=== PATIENT | female | born 1960 | race Hispanic/Latino ===

== ENCOUNTER → 2017-09-23 | Outpatient (CLI) | payer OTHER ==
[~2017-09-23] MED LIST: LIDOCAINE/PRILOCAINE CREAM 5GM TUBE TP ONE; SANTYL AUTOSUB TO MEDIHONEY FOR INPT TP ONE
[2017-09-23 17:04] VITALS: BP 179/80
== END | disposition home or self-care (01) ==
LOC: WHH 09:20
PROVIDERS: ATTEND Podiatrist Foot & Ankle Surgery
DX: L97.311 Non-pressure chronic ulcer of right ankle limited to breakdown of skin (principal)
CPT/HCPCS: 87070; 97597; A4450; G0463; J3490

== ENCOUNTER → 2017-09-30 | Outpatient (CLI) | payer OTHER ==
[2017-09-30 15:02] VITALS: BP 165/75
== END | disposition home or self-care (01) ==
LOC: WHH 08:00
PROVIDERS: ATTEND Podiatrist Foot & Ankle Surgery
DX: L97.311 Non-pressure chronic ulcer of right ankle limited to breakdown of skin (principal)
CPT/HCPCS: 11042; A6022

== ENCOUNTER → 2017-10-07 | Outpatient (CLI) | payer OTHER ==
[~2017-10-07] MED LIST changes: +LIDOCAINE HCL 4% LTA SOL 4 ML VIAL TP ONE; -LIDOCAINE/PRILOCAINE CREAM 5GM TUBE TP ONE; -SANTYL AUTOSUB TO MEDIHONEY FOR INPT TP ONE
[2017-10-07 14:30] VITALS: BP 164/72
== END | disposition home or self-care (01) ==
LOC: WHH 08:00
PROVIDERS: ATTEND Podiatrist Foot & Ankle Surgery
DX: L97.311 Non-pressure chronic ulcer of right ankle limited to breakdown of skin (principal)
CPT/HCPCS: A4649; G0463

== ENCOUNTER → 2017-10-14 | Outpatient (CLI) | payer OTHER ==
[~2017-10-14] MED LIST changes: -LIDOCAINE HCL 4% LTA SOL 4 ML VIAL TP ONE; +LIDOCAINE/PRILOCAINE CREAM 5GM TUBE TP ONE
[2017-10-14 14:31] VITALS: BP 182/82
== END | disposition home or self-care (01) ==
LOC: WHH 08:00
PROVIDERS: ATTEND Podiatrist Foot & Ankle Surgery
DX: L97.311 Non-pressure chronic ulcer of right ankle limited to breakdown of skin (principal)
CPT/HCPCS: A4649; G0463; J3490

== ENCOUNTER 2017-10-21 08:00 | Outpatient (CLI) | payer OTHER ==
[2017-10-21 13:02] VITALS: BP 170/79
== END 2017-10-21 14:53 | disposition home or self-care (01) ==
LOC: WHH 08:00
PROVIDERS: ATTEND Podiatrist Foot & Ankle Surgery
DX: E11.622 Type 2 diabetes mellitus with other skin ulcer (principal); L97.311 Non-pressure chronic ulcer of right ankle limited to breakdown of skin
CPT/HCPCS: G0463

== ENCOUNTER → 2017-12-11 | Outpatient (CLI) | payer OTHER | END | disposition home or self-care (01) | LOC: RAH 09:12 | PROVIDERS: ATTEND Family Medicine | DX: R10.9 Unspecified abdominal pain (principal); R74.8 Abnormal levels of other serum enzymes | CPT/HCPCS: 76700 ==

== ENCOUNTER 2018-06-21 22:45 | Emergency (ER) | payer OTHER ==
[2018-06-21 23:10] LABS: APPEARANCE,URINE Clear (CLEAR); BILIRUBIN,URINE Negative (NEGATIVE); COLOR,URINE Yellow (YELLOW); GLUCOSE, URINE (UA) Negative (NEGATIVE); KETONES,URINE Negative (NEGATIVE); LEUKOCYTE ESTERASE ,URINE Trace (NEGATIVE); NITRATE,URINE Negative (NEGATIVE); OCCULT BLOOD,URINE Negative (NEGATIVE); PROTEIN,URINE POS 2+ (NEGATIVE); UROBILINOGEN,URINE 0.2 mg/dL (0.2-1.0)
[2018-06-21] MEDS ORDERED: KETOROLAC TROMETHAMINE 30MG/ML ONE (23:13)
[2018-06-21] MEDS ORDERED: ONDANSETRON HCL 4 MG/2 ML VIAL ONE (23:13)
[2018-06-21 23:20] LABS: BACTERIA,URINE Rare /HPF (None Seen); MUCUS,URINE Moderate LPF (None Seen); RBC,URINE 0-1 /HPF (0-1); SQUAMOUS EPITHELIAL CELL,UR Moderate /HPF (0-2)
[2018-06-21 23:33] LABS: BASOPHILS % (AUTO) 0.4 % (0.0-5.0); EOSINOPHILS % (AUTO) 2.5 % (0.0-8.0); HEMATOCRIT 39.3 % (36-48); LYMPHOCYTES % (AUTO) 32.4 % (21.0-51.0); MEAN CORPUSCULAR HGB CONC 33.7 g/dL (32.0-36.0); MEAN CORPUSCULAR VOLUME 85.9 fL (79-99); MONOCYTES % (AUTO) 8.1 % (3.0-13.0); NEUTROPHILS % (AUTO) 56.6 % (40.0-77.0); PLATELET COUNT (AUTO) 272 K/uL (130-400); RED BLOOD CELL COUNT(AUTO) 4.58 MIL/uL (4.00-5.50); RED CELL DISTRIBUTION WIDTH 14.4 % (11.0-15.5); WHITE BLOOD COUNT (AUTO) 10.8 K/uL (4.8-10.8)
[2018-06-21 23:40] LABS: CREATININE 0.9 mg/dL (0.5-1.5)
[2018-06-21 23:44] LABS: ALBUMIN 3.4 g/dL (3.5-5.0); BILIRUBIN,TOTAL 0.3 mg/dL (0.2-1.0); TOTAL PROTEIN, SERUM 6.9 g/dL (6.0-8.3)
== END 2018-06-22 01:15 | disposition home or self-care (01) ==
LOC: EDH 22:45
DX: K59.00 Constipation, unspecified (principal); I10 Essential (primary) hypertension; E11.9 Type 2 diabetes mellitus without complications; E78.5 Hyperlipidemia, unspecified; Z98.890 Other specified postprocedural states
CPT/HCPCS: 36415; 74176; 80053; 81001; 85025; 96374; 96375; 99285; J1885; J2405

== ENCOUNTER 2019-01-13 23:27 | Observation (INO) | payer OTHER ==
[2019-01-13] MEDS ORDERED: ASPIRIN 325 MG TABLET ONE (23:38)
[2019-01-13 23:45] LABS: BASOPHILS % (AUTO) 2.1 % (0.0-5.0); EOSINOPHILS % (AUTO) 2.3 % (0.0-8.0); HEMATOCRIT 39.1 % (36-48); LYMPHOCYTES % (AUTO) 32.5 % (21.0-51.0); MEAN CORPUSCULAR HEMOGLOBIN 28.3 pg (27.0-33.0); MEAN CORPUSCULAR VOLUME 85.8 fL (79-99); MONOCYTES % (AUTO) 6.6 % (3.0-13.0); NEUTROPHILS % (AUTO) 56.5 % (40.0-77.0); NUCLEATED RED BLOOD CELLS 0.1 % (0.0-0.19); PLATELET COUNT (AUTO) 240 K/uL (130-400); RED BLOOD CELL COUNT(AUTO) 4.56 MIL/uL (4.00-5.50); RED CELL DISTRIBUTION WIDTH 14.3 % (11.0-15.5); WHITE BLOOD COUNT (AUTO) 9.7 K/uL (4.8-10.8)
[2019-01-13 23:55] LABS: INR 0.9 (0.85-1.15); PARTIAL THROMBOPLASTIN TIME 26.4 SEC (26.3-35.5); POTASSIUM 3.8 mmol/L (3.5-5.1); PROTHROMBIN TIME 9.5 SEC (9.6-11.6)
[2019-01-13 23:59] LABS: ALBUMIN 3.5 g/dL (3.5-5.0); BILIRUBIN,TOTAL 0.3 mg/dL (0.2-1.0); TOTAL PROTEIN, SERUM 6.9 g/dL (6.0-8.3)
[2019-01-14] VITALS (10 sets, daily range): BP systolic 134–156; BP diastolic 50–82
[2019-01-14 00:19] LABS: B-TYPE NATRIURETIC PEPTIDE 17 pg/mL (0-100)
[2019-01-14] MEDS ORDERED: NITROGLYCERIN 1GM/1 INCH PACKET TD ONE (01:21)
[2019-01-14] MEDS ORDERED: GLUCAGON 1MG KIT 1 MG ML IM PRN (01:45)
[2019-01-14] MEDS ORDERED: DEXTROSE 50%-WATER 50 ML DISP.SYRIN IV PRN (01:45)
[2019-01-14 03:52] LABS: APPEARANCE,URINE CLEAR (CLEAR); BILIRUBIN,URINE NEGATIVE (NEGATIVE); COLOR,URINE YELLOW (YELLOW); GLUCOSE, URINE (UA) 100 mg/dL (NEGATIVE); KETONES,URINE NEGATIVE (NEGATIVE); LEUKOCYTE ESTERASE ,URINE NEGATIVE (NEGATIVE); NITRATE,URINE NEGATIVE (NEGATIVE); OCCULT BLOOD,URINE NEGATIVE (NEGATIVE); PH,URINE 5.5 (5.0-8.0); PROTEIN,URINE 100 mg/dL (NEGATIVE); UROBILINOGEN,URINE 0.2 mg/dL (0.2-1.0)
[2019-01-14 03:59] LABS: BACTERIA,URINE Rare /HPF (None Seen); RBC,URINE None Seen /HPF (0-1); SQUAMOUS EPITHELIAL CELL,UR Few /HPF (0-2); WBC,URINE 0-1 /HPF (0-1)
[2019-01-14] MEDS ORDERED: NITROGLYCERIN 1GM/1 INCH PACKET TD SCH (06:00)
[2019-01-14] MEDS ORDERED: ASPIRIN 325MG EC TAB 325 MG TABLET.DR PO SCH (09:00)
--- NOTE | 2019-01-14 10:58 | NUR ---
[facility] Ashleigh met with pt and daughter Christi Diaz [phone]. Daughter lives with pt who is self employed, independent, drives, no DME or in home care services. Dr Atif Samuels is PCP, has rx coverage. Plan is home with daughter at pr Addendum: 01/14/19 at 1059 by MACARIO PHAM SS Amended: Links added.
[2019-01-14] MEDS ORDERED: LISINOPRIL 40 MG TABLET PO SCH (11:00)
[2019-01-14] MEDS ORDERED: ASPIRIN 325 MG TABLET ONE (11:14)
[2019-01-14] MEDS ORDERED: IOHEXOL-350 50ML VIAL IV ONE (14:03)
[2019-01-14] MEDS ORDERED: IOHEXOL 350 MG/ML 100ML INFUS..BTL IV ONE (14:03)
[2019-01-14] MEDS ORDERED: BIVALIRUDIN 250 MG/VIAL IV ONE (14:03)
[2019-01-14] MEDS ORDERED: NITROGLYCERIN 5 MG/ML 10 ML VIAL IV ONE (14:03)
[2019-01-14] MEDS ORDERED: LIDOCAINE HCL 1% 20 ML VIAL ONE (14:03)
[2019-01-14] MEDS ORDERED: MIDAZOLAM HCL 1 MG/ML 2ML VIAL ONE (14:03)
[2019-01-14] MEDS ORDERED: FENTANYL CITRATE PF 50 MCG/1 ML 2ML VIAL ONE (14:06)
[2019-01-14] MEDS ORDERED: TICAGRELOR 90 MG TABLET ONE (14:26)
[2019-01-14] MEDS ORDERED: MORPHINE SULFATE 4 MG/1ML SYG ONE (14:40)
[2019-01-14] MEDS ORDERED: LOVA20TA3 PO (14:54)
[2019-01-14] MEDS ORDERED: LISI40TA4 PO (14:54)
[2019-01-14] MEDS ORDERED: ASPI-555 PO (14:54)
[2019-01-14] MEDS ORDERED: METO25 PO (14:54)
[2019-01-14] MEDS ORDERED: INSU100I26 SQ (14:54)
[2019-01-14] MEDS ORDERED: SODIUM CHLORIDE 0.9% 1000ML 1,000 ML IV SCH (14:55)
[2019-01-14] MEDS ORDERED: HYDRALAZINE HCL 20 MG/ML VIAL IV PRN (15:00)
[2019-01-14] MEDS ORDERED: METOPROLOL TARTRATE 1 MG/ML 5ML VIAL IV PRN (15:00)
[2019-01-14] MEDS ORDERED: NITROGLYCERIN 0.4 MG SL TAB SL PRN (15:00)
[2019-01-14] MEDS ORDERED: LINA5TAB PO (15:33)
[2019-01-14] MEDS: INSULIN R PO SS1 SQ SCH ×2 (16:17→21:00)
[2019-01-14] MEDS: METOPROLOL TARTRATE 25 MG TAB PO SCH ×2 (16:39→20:26)
[2019-01-14] MEDS: NITROGLYCERIN 1GM/1 INCH PACKET TD SCH (17:06)
--- NOTE | 2019-01-14 20:00 | NUR ---
DRESSING TO RIGHT GROIN CLEAN, DRY, AND INTACT. SITE APPEARS SOFT TO PALPATION.
[2019-01-14] MEDS: TICAGRELOR 90 MG TABLET PO SCH (20:27)
[2019-01-14] MEDS ORDERED: ATORVASTATIN CALCIUM 20 MG TABLET PO SCH (21:00)
[2019-01-14] MEDS ORDERED: NON-FORMULARY MEDICATION 1 EACH (Lovastatin 20 MG) PO SCH (21:00)
[2019-01-14] MEDS ORDERED: METOPROLOL TARTRATE 25 MG PO SCH (21:00)
[2019-01-14] MEDS ORDERED: MORPHINE SULFATE 2 MG/ML 1ML SYG IVP PRN (22:45)
[2019-01-14] MEDS ORDERED: HYDROCODONE/ACETAMINOPHEN 10/325 MG TAB PO PRN (22:45)
[2019-01-14] MEDS ORDERED: ONDANSETRON HCL 4 MG/2 ML VIAL IVP PRN (22:45)
[2019-01-14] MEDS ORDERED: HYDROCODONE/ACETAMINOPHEN 10/325 MG TAB ONE (22:47)
--- NOTE | 2019-01-15 00:05 | NUR ---
DRESSING REMAINS CLEAN, DRY, AND INTACT. PATIENT AMBULATING WITHOUT DIFFICULTY. SITE CONTINUES TO APPEAR SOFT TO PALPATION.
[2019-01-15] MEDS: NITROGLYCERIN 1GM/1 INCH PACKET TD SCH ×2 (00:20→05:33)
[2019-01-15 03:56] VITALS: BP 127/74
--- NOTE | 2019-01-15 05:30 | NUR ---
RIGHT GROIN DRESSING INTACT, NO DRAINAGE NOTED. SITE APPEARS SOFT TO PALPATION. PATIENT DENIES ANY COMPLAINTS OF PAIN OR DISCOMFORT AT PRESENT.
[2019-01-15] MEDS: INSULIN R PO SS1 SQ SCH ×2 (05:33→11:51)
[2019-01-15 07:24] VITALS: BP 142/56
--- NOTE | 2019-01-15 07:30 | NUR ---
ASSESSMENT ENCOUNTERED PT A&OX3, CALM COOPERATIVE AND DOES NOT APPEAR TO BE IN ANY DISTRESS NOR ANY NEURO DEFICITS PRESENT. PT DENIES PAIN, SOB, NAUSEA. RT GROIN SOFT NONTENDER WITH NO OOZING OR HEMATOMA PRESENT. DP/PT PULSES PALPABLE. PT IS AMBULATORY, GAIT STEADY AND STRONG WITH STAND BY ASSIST. CALL LIGHT WITHIN REACH, FAMILY AT BEDSIDE.
[2019-01-15] MEDS: TICAGRELOR 90 MG TABLET PO SCH (08:33)
[2019-01-15] MEDS: METOPROLOL TARTRATE 25 MG TAB PO SCH (08:34)
[2019-01-15] MEDS ORDERED: NON-FORMULARY MEDICATION 1 EACH (Aspirin (Aspir 81) 81 MG) PO SCH (09:00)
[2019-01-15] MEDS ORDERED: INSULIN GLARGINE 100 UNITS/ML 10 ML VIAL SQ SCH (09:00)
[2019-01-15] MEDS ORDERED: ASPIRIN 81 MG EC TAB PO SCH (09:00)
[2019-01-15] MEDS ORDERED: LISINOPRIL 40 MG TABLET PO SCH (09:00)
[2019-01-15 11:14] VITALS: BP 140/69
[2019-01-15] MEDS ORDERED: TICA90TA PO (12:28)
--- NOTE | 2019-01-15 13:00 | NUR ---
DISCHARGE INSTRUCTIONS GIVEN, PIV REMOVED AND INTACT, BRILIN[employer] VOUCHER CARD GIVEN, DISCHARGED HOME TO FAMILY VEHICLE VIA WHEELCHAIR.
== END 2019-01-15 13:45 | disposition home or self-care (01) ==
LOC: EDH 23:27 → EDHIP 01-14 00:48 → INTOOBSV 01-14 00:48 → 2AH 01-14 15:28
PROVIDERS: ADMIT Internal Medicine; ATTEND Internal Medicine
DX: I20.0 Unstable angina (principal); E11.9 Type 2 diabetes mellitus without complications; E66.01 Morbid (severe) obesity due to excess calories; G47.33 Obstructive sleep apnea (adult) (pediatric); E78.5 Hyperlipidemia, unspecified; I10 Essential (primary) hypertension; I47.1 Supraventricular tachycardia; I49.1 Atrial premature depolarization; J45.909 Unspecified asthma, uncomplicated; Z79.02 Long term (current) use of antithrombotics/antiplatelets; Z79.82 Long term (current) use of aspirin; Z79.84 Long term (current) use of oral hypoglycemic drugs; Z82.49 Family history of ischemic heart disease and other diseases of the circulatory system; Z79.01 Long term (current) use of anticoagulants
CPT/HCPCS: 36415 ×2; 71045; 80053; 81001; 82550 ×2; 82948 ×5; 83605; 83690; 83880; 84484 ×2; 85025; 85610; 85730; 93005 ×3; 93306; 93458; 96372; C1725; C1769; C1874; C1887; C1894 ×2; C9600; G0378 ×34; J0583; J1644; J1815; J2250; J2270; J3010; J3490; J7030; Q9965 ×2; Q9967 ×2; 99156; 99157

== ENCOUNTER → 2020-01-19 | Outpatient (CLI) | payer OTHER ==
[~2020-01-19] MED LIST changes: +ASPI-556 PO; +INSU100I26 SQ; +LIDOCAINE HCL 2% JELLY 5 ML TP ONE; -LIDOCAINE/PRILOCAINE CREAM 5GM TUBE TP ONE; +LINA5TAB PO; +LISI40TA4 PO; +LOVA20TA3 PO; +METO25 PO; +TICA90TA PO
[2020-01-19 14:27] VITALS: BP 128/73
== END | disposition home or self-care (01) ==
LOC: WHH 08:30
PROVIDERS: ATTEND Surgery
DX: E11.622 Type 2 diabetes mellitus with other skin ulcer (principal); L97.211 Non-pressure chronic ulcer of right calf limited to breakdown of skin; I10 Essential (primary) hypertension; I25.10 Atherosclerotic heart disease of native coronary artery without angina pectoris; E78.5 Hyperlipidemia, unspecified; E66.9 Obesity, unspecified; Z79.4 Long term (current) use of insulin; Z95.5 Presence of coronary angioplasty implant and graft
CPT/HCPCS: A4450; A6021; G0463; 99205

== ENCOUNTER → 2020-01-26 | Outpatient (CLI) | payer OTHER ==
[~2020-01-26] MED LIST changes: -LIDOCAINE HCL 2% JELLY 5 ML TP ONE
[2020-01-26 12:38] VITALS: BP 171/74
== END | disposition home or self-care (01) ==
LOC: WHH 08:00
PROVIDERS: ATTEND Surgery
DX: E11.622 Type 2 diabetes mellitus with other skin ulcer (principal); L97.228 Non-pressure chronic ulcer of left calf with other specified severity; I10 Essential (primary) hypertension; I25.10 Atherosclerotic heart disease of native coronary artery without angina pectoris; E78.5 Hyperlipidemia, unspecified; E66.9 Obesity, unspecified; Z79.4 Long term (current) use of insulin; Z95.5 Presence of coronary angioplasty implant and graft
CPT/HCPCS: G0463

== ENCOUNTER 2020-02-02 08:00 | Outpatient (CLI) | payer OTHER ==
[2020-02-02 12:18] VITALS: BP 157/88; PULSE 78; RESP 18; TEMP 98.9
== END 2020-02-02 14:04 | disposition home or self-care (01) ==
LOC: WHH 08:00
PROVIDERS: ATTEND Surgery
DX: E11.622 Type 2 diabetes mellitus with other skin ulcer (principal); L97.228 Non-pressure chronic ulcer of left calf with other specified severity; I25.10 Atherosclerotic heart disease of native coronary artery without angina pectoris; I10 Essential (primary) hypertension; E66.9 Obesity, unspecified; E78.5 Hyperlipidemia, unspecified; Z95.5 Presence of coronary angioplasty implant and graft

== ENCOUNTER 2022-06-16 18:30 | Emergency (ER) | payer MEDICARE, OTHER ==
[~2022-06-16] VITALS: Ht 152.4 cm; Wt 69.9 kg
[~2022-06-16 18:30] MED LIST changes: -LISI40TA4 PO; +LISI40TA9 PO
[2022-06-16 21:21] LABS: HEMATOCRIT 39.7 % (36-48); MEAN CORPUSCULAR HEMOGLOBIN 28.3 pg (27.0-33.0); MEAN CORPUSCULAR HGB CONC 32.7 g/dL (32.0-36.0); MEAN CORPUSCULAR VOLUME 86.3 fL (79-99); PLATELET COUNT (AUTO) 250 K/uL (130-400); RED CELL DISTRIBUTION WIDTH 14.4 % (11.0-15.5); WHITE BLOOD COUNT (AUTO) 9.3 K/uL (4.8-10.8)
[2022-06-16 21:22] LABS: BASOPHILS % (AUTO) 0.9 % (0.0-5.0); EOSINOPHILS % (AUTO) 1.9 % (0.0-8.0); LYMPHOCYTES % (AUTO) 40.1 % (21.0-51.0); MONOCYTES % (AUTO) 9.3 % (3.0-13.0); NEUTROPHILS % (AUTO) 47.5 % (40.0-77.0)
[2022-06-16 21:32] LABS: CREATININE 0.8 mg/dL (0.5-1.5); POTASSIUM 4.1 mmol/L (3.5-5.1)
[2022-06-16 21:36] LABS: ALBUMIN 3.6 g/dL (3.5-5.0); TOTAL PROTEIN, SERUM 6.9 g/dL (6.0-8.3)
[2022-06-16] MEDS ORDERED: ONDANSETRON 4MG INJ IVP ONE (22:00)
[2022-06-16] MEDS ORDERED: FAMOTIDINE 20MG VIAL IV ONE (22:00)
[2022-06-16] MEDS ORDERED: MORPHINE 4 MG SYG IVP ONE (22:00)
[2022-06-16] MEDS ORDERED: 0.9%NACL 1000ML 1,000 ML IV ONE (22:00)
[2022-06-16] MEDS ORDERED: IOHEXOL 350 MG/ML 100ML INFUS..BTL IV ONE (22:13)
[2022-06-16 22:15] LABS: APPEARANCE,URINE CLEAR (CLEAR); BILIRUBIN,URINE NEGATIVE (NEGATIVE); COLOR,URINE YELLOW (YELLOW); GLUCOSE, URINE (UA) >=1000 mg/dL (NEGATIVE); KETONES,URINE NEGATIVE (NEGATIVE); LEUKOCYTE ESTERASE ,URINE NEGATIVE Leu/uL (NEGATIVE); NITRATE,URINE NEGATIVE (NEGATIVE); OCCULT BLOOD,URINE NEGATIVE (NEGATIVE); PH,URINE 5.5 (5.0-8.0); PROTEIN,URINE 30 mg/dL (NEGATIVE); UROBILINOGEN,URINE 0.2 mg/dL (0.2-1.0)
[2022-06-16 22:18] LABS: MUCUS,URINE RARE LPF (None Seen); SQUAMOUS EPITHELIAL CELL,UR FEW /HPF (0-2)
[2022-06-17] MEDS ORDERED: ONDA4TAB10 PO (00:06)
[2022-06-17 00:07] VITALS: BP 149/71
== END 2022-06-17 00:16 | disposition home or self-care (01) ==
LOC: EDH 18:30
DX: R10.13 Epigastric pain (principal); R11.2 Nausea with vomiting, unspecified; E11.9 Type 2 diabetes mellitus without complications; I10 Essential (primary) hypertension; Z79.4 Long term (current) use of insulin; Z79.82 Long term (current) use of aspirin
CPT/HCPCS: 36415; 74177; 80053; 81001; 82550; 83690; 85025; 87088; 96361; 96374; 96375; J2270; J2405; J3490; J7030; Q9967

== ENCOUNTER → 2022-06-26 | Outpatient (CLI) | payer OTHER ==
[~2022-06-26] MED LIST changes: +ONDA4TAB10 PO
== END | disposition home or self-care (01) ==
LOC: RAH 09:16
PROVIDERS: ATTEND Internal Medicine
DX: K21.9 Gastro-esophageal reflux disease without esophagitis (principal); R12 Heartburn
CPT/HCPCS: 74240

== ENCOUNTER → 2022-07-21 | Outpatient (CLI) | payer OTHER | END | disposition home or self-care (01) | LOC: SHCH 10:37 | PROVIDERS: ATTEND Internal Medicine Cardiovascular Disease | DX: I87.2 Venous insufficiency (chronic) (peripheral) (principal) | CPT/HCPCS: 93970 ==